=== PATIENT | female | born 1975 | race Caucasian/White ===

== ENCOUNTER 2017-12-24 08:13 | Outpatient (CLI) | payer OTHER | END 2017-12-24 08:32 | disposition home or self-care (01) | LOC: LAB 08:13 | DX: Z12.11 Encounter for screening for malignant neoplasm of colon (principal); R82.79 Other abnormal findings on microbiological examination of urine; D64.9 Anemia, unspecified; E03.9 Hypothyroidism, unspecified; N39.0 Urinary tract infection, site not specified; E55.9 Vitamin D deficiency, unspecified; L68.0 Hirsutism; E11.9 Type 2 diabetes mellitus without complications; E78.2 Mixed hyperlipidemia; N91.1 Secondary amenorrhea ==

== ENCOUNTER 2024-08-16 11:19 | Outpatient (CLI) | payer OTHER | END 2024-08-16 11:29 | disposition home or self-care (01) | LOC: RAD 11:19 | DX: M99.01 Segmental and somatic dysfunction of cervical region (principal); M99.02 Segmental and somatic dysfunction of thoracic region; M99.03 Segmental and somatic dysfunction of lumbar region; M99.04 Segmental and somatic dysfunction of sacral region; M99.05 Segmental and somatic dysfunction of pelvic region ==